=== PATIENT | female | born 1970 | race Hispanic/Latino ===

== ENCOUNTER 2021-05-14 11:29 | Emergency (ER) | payer BC, OTHER ==
[~2021-05-14] VITALS: Ht 160 cm; Wt 70.3 kg
[~2021-05-14 11:29] MED LIST: ASPIRIN81 MG PO; BUTALB-ACETAMI1 EACH PO; CINNAMON500 MG PO; CYCLOBENZAPRINE10 MG PO; FERROUS SULFAT325 MG PO; FISH OIL 1,0001 EAC1 PO; MUSCLE SPASM MED PO; NAPROXEN250 MG PO; VITAMIN C500 M2 PO; VITAMIN D400 UNI1 PO
[2021-05-14 12:29] LABS: BASOPHILS % 0.4 % (0.0-1.0); EOSINOPHILS % 0.2 % (0.0-6.0); HEMATOCRIT 36.8 % (34.2-44.1); LYMPHOCYTES # (AUTO) 1.5 (1.0-3.2); LYMPHOCYTES % 25.9 % (18.0-39.1); MEAN CORPUSCULAR HEMOGLOBIN 28.2 pg (28-32); MEAN CORPUSCULAR HGB CONC 32.6 g/dL (31-35); MEAN CORPUSCULAR VOLUME 86.4 fL (81-99); MONOCYTES # (AUTO) 0.5 (0.2-0.8); NEUTROPHILS # (AUTO) 3.7 (2.1-6.9); NEUTROPHILS % 65.1 % (38.7-80.0); PLATELET COUNT 249 x10e3/uL (140-360); RED BLOOD COUNT 4.26 x10e6/uL (3.6-5.1); RED CELL DISTRIBUTION WIDTH 12.6 % (11.7-14.4)
[2021-05-14 12:48] LABS: ALBUMIN 3.9 g/dL (3.5-5.0); ALBUMIN/GLOBULIN RATIO 1.1 (0.8-2.0); ANION GAP 16.3 mmol/L (8-16); CALCIUM 8.8 mg/dL (8.4-10.2); CREATININE, SERUM 0.64 mg/dL (0.57-1.11); POTASSIUM 3.3 mmol/L (3.5-5.1)
[2021-05-14 13:00] LABS: LIPASE 21 U/L (8-78)
[2021-05-14 13:36] LABS: AMPHETAMINES SCREEN,URINE NEGATIVE (NEGATIVE); BENZODIAZEPINES SCREEN,URINE NEGATIVE (NEGATIVE); CLARITY,URINE SL CLOUDY (CLEAR); COLOR,URINE YELLOW (YELLOW); LEUKOCYTE ESTERASE ,URINE NEGATIVE (NEGATIVE); NITRITE,URINE NEGATIVE (NEGATIVE); PHENCYCLIDINE SCREEN,URINE NEGATIVE (NEGATIVE); PROTEIN,URINE DIPSTICK TRACE (NEGATIVE)
[2021-05-14 13:37] LABS: KETONES,URINE >=160 (NEGATIVE); URINE UROBILINOGEN 0.2 mg/dL (0.2 - 1)
[2021-05-14 13:47] LABS: BACTERIA,URINE RARE /HPF; RBC,URINE 0-5 /HPF (0-5)
[2021-05-14 13:48] LABS: EPITHELIAL CELLS,URINE FEW /LPF; MUCUS,URINE FEW (RARE)
[2021-05-14] MEDS ORDERED: IOPAMIDOL 370 MG/ML 200 ML INFUS..BTL INJ ONE (13:51)
[2021-05-14] MEDS ORDERED: SODIUM CHLORIDE 0.9% 50ML 50 ML ONE (13:51)
== END 2021-05-14 16:00 | disposition home or self-care (01) ==
LOC: ER 12:37
DX: R10.84 Generalized abdominal pain (principal); K86.9 Disease of pancreas, unspecified
CPT/HCPCS: 36415; 74177; 80053; 80307; 81001; 83690; 84702; 85025; 99284; Q9967

== ENCOUNTER 2023-07-23 07:38 | Inpatient (IN) | payer OTHER ==
[~2023-07-23] VITALS: Ht 160 cm; Wt 50.8 kg
[2023-07-23] MEDS ORDERED: ONDANSETRON HCL INJ 2MG/ML 2ML 2 MG/ML VIAL IV STA (07:58)
[2023-07-23] MEDS ORDERED: HYDROMORPHONE 1MG/1ML INJ IV STA (07:58)
[2023-07-23] MEDS ORDERED: SODIUM CHLORIDE 0.9% 1000ML 1,000 ML IV STA ×2 (07:58→09:19)
[2023-07-23 08:18] LABS: BASOPHILS % 0.5 % (0.0-1.0); EOSINOPHILS % 0.3 % (0.0-6.0); HEMATOCRIT 33.2 % (34.2-44.1); HEMOGLOBIN 10.9 g/dL (12.0-16.0); LYMPHOCYTES # (AUTO) 0.4 (1.0-3.2); MEAN CORPUSCULAR HEMOGLOBIN 27.7 pg (28-32); MEAN CORPUSCULAR HGB CONC 32.8 g/dL (31-35); MEAN CORPUSCULAR VOLUME 84.3 fL (81-99); MONOCYTES # (AUTO) 0.3 (0.2-0.8); MONOCYTES % 3.8 % (4.4-11.3); NEUTROPHILS # (AUTO) 6.7 (2.1-6.9); NEUTROPHILS % 89.7 % (38.7-80.0); PLATELET COUNT 504 x10e3/uL (140-360); RED BLOOD COUNT 3.94 x10e6/uL (3.6-5.1); WHITE BLOOD COUNT 7.43 x10e3/uL (4.8-10.8)
[2023-07-23 08:28] LABS: INR 0.98; PROTHROMBIN TIME 13.6 seconds (11.9-14.5)
[2023-07-23 08:29] LABS: PARTIAL THROMBOPLASTIN TIME 35.5 seconds (23.8-35.5)
[2023-07-23 08:37] LABS: ALANINE AMINOTRANSFERASE 9 IU/L (0-55); ALBUMIN 3.8 g/dL (3.5-5.0); ALBUMIN/GLOBULIN RATIO 1.1 (0.8-2.0); ALKALINE PHOSPHATASE 143 IU/L (40-150); ANION GAP 17.7 mmol/L (8-16); BLOOD UREA NITROGEN 10 mg/dL (7-26); BUN/CREATININE RATIO 14 (6-25); CARBON DIOXIDE 23 mmol/L (22-29); CHLORIDE 98 mmol/L (98-107); CREATINE KINASE 15 IU/L (29-168); GLUCOSE 220 mg/dL (74-118); MAGNESIUM 1.5 MG/DL (1.3-2.1); POTASSIUM 3.7 mmol/L (3.5-5.1); SODIUM 135 mmol/L (136-145)
[2023-07-23 08:38] LABS: LIPASE < 4 U/L (8-78)
[2023-07-23 08:40] LABS: CLARITY,URINE SL CLOUDY (CLEAR); COLOR,URINE YELLOW (YELLOW); KETONES,URINE 2+ (NEGATIVE); LEUKOCYTE ESTERASE ,URINE NEGATIVE (NEGATIVE); NITRITE,URINE NEGATIVE (NEGATIVE); PROTEIN,URINE DIPSTICK 1+ (NEGATIVE); URINE UROBILINOGEN 0.2 mg/dL (0.2 - 1)
[2023-07-23 08:43] LABS: BACTERIA,URINE FEW /HPF; EPITHELIAL CELLS,URINE MANY /LPF; MUCUS,URINE MODERATE (RARE); WBC,URINE (MAN) 0-5 /HPF (0-5)
[2023-07-23] MEDS ORDERED: IOPAMIDOL 370 MG/ML 100 ML INFUS..BTL INJ ONE (08:59)
[2023-07-23] MEDS ORDERED: BENZOCAINE/TETRACAINE/BUTAMBEN AERO SPRAY 56 GM CAN TOP ONE (09:45)
[2023-07-23] MEDS ORDERED: ESTRACE42.5 GM TOP (09:57)
[2023-07-23] MEDS ORDERED: ONDANSETRON ODT8 MG PO (09:57)
[2023-07-23] MEDS ORDERED: PANTOPRAZOLE SO40 MG PO (09:57)
[2023-07-23] MEDS ORDERED: CYMBALTA30 MG PO (09:57)
[2023-07-23] MEDS ORDERED: PROMETHAZINE HC25 M1 PO (09:57)
[2023-07-23] MEDS ORDERED: METFORMIN HCL500 MG PO (09:57)
[2023-07-23] MEDS ORDERED: CLONAZEPAM0.5 MG PO (09:57)
[2023-07-23] MEDS ORDERED: IMITREX6 MG/0.51 INJ (09:57)
[2023-07-23] MEDS ORDERED: HYDROMORPHONE HC2 MG PO (09:57)
[2023-07-23] MEDS ORDERED: PROMETHAZINE HCL (IM) 25 MG/ML VIAL IM PRN (10:45)
[2023-07-23] MEDS ORDERED: HYDROMORPHONE 1MG/1ML INJ IV PRN (10:45)
[2023-07-23] MEDS ORDERED: ONDANSETRON HCL INJ 2MG/ML 2ML 2 MG/ML VIAL IV PRN (10:45)
[2023-07-23] MEDS: SODIUM CHLORIDE 0.9% 1000ML 1,000 ML IV SCH ×3 (11:30→22:43)
[2023-07-23 13:40] VITALS: BP 99/69; PULSE 92; RESP 18; TEMP 99.1; O2SAT 99
[2023-07-23 13:43] VITALS: BP 99/69; PULSE 92; RESP 18; TEMP 99.1; O2SAT 99
[2023-07-23] MEDS ORDERED: METAMUCIL FIBE3.4 GM PO (14:02)
[2023-07-23] MEDS ORDERED: CLARITIN10 MG PO (14:02)
[2023-07-23] MEDS ORDERED: PEPCID20 MG PO (14:02)
[2023-07-23] MEDS ORDERED: [UNRECOGNIZED DRUG - OTHER] (14:02)
[2023-07-23] MEDS ORDERED: CREON (14:02)
[2023-07-23] MEDS ORDERED: MORPHINE SULFAT30 M2 PO (14:02)
[2023-07-23] MEDS ORDERED: [UNRECOGNIZED DRUG - OTHER] (14:02)
[2023-07-23] MEDS ORDERED: PREVACID 24HR15 MG PO (14:02)
[2023-07-23] MEDS ORDERED: IMODIUM A-D2 M2 PO (14:02)
[2023-07-23] MEDS ORDERED: GEMZAR (14:02)
[2023-07-23 16:08] VITALS: BP 99/63; PULSE 86; RESP 16; TEMP 98.9; O2SAT 99
[2023-07-23 16:37] LABS: CREATINE KINASE 13 IU/L (29-168)
[2023-07-23 20:00] VITALS: BP 91/54; PULSE 74; RESP 18; TEMP 97.9; O2SAT 99
[2023-07-23 21:00] VITALS: BP 91/54; PULSE 74; RESP 18; TEMP 97.9; O2SAT 99
[2023-07-24] VITALS (9 sets, daily range): BP systolic 91–115; BP diastolic 54–64; PULSE 67–81; RESP 16–18; TEMP 97.9–99; O2SAT 98–100
[2023-07-24 04:54] LABS: BASOPHILS % 0.7 % (0.0-1.0); EOSINOPHILS % 0.7 % (0.0-6.0); HEMATOCRIT 23.9 % (34.2-44.1); HEMOGLOBIN 7.5 g/dL (12.0-16.0); LYMPHOCYTES # (AUTO) 0.4 (1.0-3.2); LYMPHOCYTES % 9.7 % (18.0-39.1); MEAN CORPUSCULAR HEMOGLOBIN 27.5 pg (28-32); MEAN CORPUSCULAR HGB CONC 31.4 g/dL (31-35); MEAN CORPUSCULAR VOLUME 87.5 fL (81-99); MONOCYTES # (AUTO) 0.2 (0.2-0.8); MONOCYTES % 5.2 % (4.4-11.3); NEUTROPHILS # (AUTO) 3.7 (2.1-6.9); NEUTROPHILS % 83.3 % (38.7-80.0); PLATELET COUNT 252 x10e3/uL (140-360); RED BLOOD COUNT 2.73 x10e6/uL (3.6-5.1); RED CELL DISTRIBUTION WIDTH 19.8 % (11.7-14.4); WHITE BLOOD COUNT 4.45 x10e3/uL (4.8-10.8)
[2023-07-24 05:16] LABS: ALANINE AMINOTRANSFERASE 6 IU/L (0-55); ALBUMIN 2.6 g/dL (3.5-5.0); ALBUMIN/GLOBULIN RATIO 1.2 (0.8-2.0); ALKALINE PHOSPHATASE 88 IU/L (40-150); ANION GAP 11.2 mmol/L (8-16); BLOOD UREA NITROGEN 7 mg/dL (7-26); BUN/CREATININE RATIO 13 (6-25); CALCIUM 7.7 mg/dL (8.4-10.2); CARBON DIOXIDE 24 mmol/L (22-29); CHLORIDE 108 mmol/L (98-107); CREATININE, SERUM 0.56 mg/dL (0.57-1.11); GLUCOSE 68 mg/dL (74-118); POTASSIUM 3.2 mmol/L (3.5-5.1); SODIUM 140 mmol/L (136-145)
[2023-07-24 05:18] LABS: LIPASE < 4 U/L (8-78)
[2023-07-24] MEDS: DEXTROSE 5%/0.9% SOD CHL 1,000 ML IV SCH ×3 (05:59→21:46)
[2023-07-24 06:46] LABS: HEMATOCRIT 23.4 % (34.2-44.1); HEMOGLOBIN 7.6 g/dL (12.0-16.0)
[2023-07-25 03:01] VITALS: BP 103/63; PULSE 59; RESP 16; TEMP 98.9; O2SAT 99
[2023-07-25 05:28] LABS: CREATINE KINASE 15 IU/L (29-168)
[2023-07-25] MEDS: DEXTROSE 5%/0.9% SOD CHL 1,000 ML IV SCH ×2 (06:04→17:52)
[2023-07-25 08:07] VITALS: BP 103/61; PULSE 56; RESP 17; TEMP 98.4; O2SAT 100
[2023-07-25 09:05] VITALS: BP 103/61; PULSE 56; RESP 17; TEMP 98.4; O2SAT 100
[2023-07-25 12:00] VITALS: BP 111/62; PULSE 63; RESP 17; TEMP 98.6; O2SAT 100
[2023-07-25 16:00] VITALS: BP 107/57; PULSE 65; RESP 17; TEMP 98.7; O2SAT 100
== END 2023-07-25 19:00 | disposition home or self-care (01) | DRG 389 ==
LOC: ER 07:54 → ERHOLD 10:34 → MED/SURG 13:36
PROVIDERS: ADMIT Internal Medicine; ATTEND Internal Medicine
DX: K56.690 Other partial intestinal obstruction (principal); C25.9 Malignant neoplasm of pancreas, unspecified; C78.4 Secondary malignant neoplasm of small intestine; C78.89 Secondary malignant neoplasm of other digestive organs; K59.00 Constipation, unspecified; E11.9 Type 2 diabetes mellitus without complications; Z66 Do not resuscitate; G44.1 Vascular headache, not elsewhere classified; Z96.659 Presence of unspecified artificial knee joint; Z79.899 Other long term (current) drug therapy; Z79.69 Long term (current) use of other immunomodulators and immunosuppressants; Z79.82 Long term (current) use of aspirin; Z79.84 Long term (current) use of oral hypoglycemic drugs; Z85.07 Personal history of malignant neoplasm of pancreas; Z20.822 Contact with and (suspected) exposure to COVID-19
CPT/HCPCS: 36415; 71045; 74177; 80053; 81001; 82550; 82948; 83605; 83690; 83735; 84484; 85014; 85018; 85025; 85610; 85730; 87040; 87086; 93005; 99284; J1170; J2405; J2543; J7030; J7042; Q9967; U0002